=== PATIENT | female | born 1960 | race Caucasian/White ===

== ENCOUNTER 2016-09-05 19:50 | Emergency (ER) | payer OTHER ==
[~2016-09-05] VITALS: Ht 165.1 cm; Wt 65.9 kg
[2016-09-05 20:02] VITALS: BP_DIAS 78
[2016-09-05] MEDS ORDERED: ATOR40TA28 PO (20:09)
[2016-09-05] MEDS ORDERED: CANA100T PO (20:09)
[2016-09-05] MEDS ORDERED: INSU200I4 SQ (20:09)
[2016-09-05] MEDS ORDERED: CILO100T PO (20:09)
[2016-09-05] MEDS ORDERED: METO25 PO (20:09)
[2016-09-05] MEDS ORDERED: CLOP75 PO (20:09)
[2016-09-05] MEDS ORDERED: ASPI-556 PO (20:09)
[2016-09-05] MEDS ORDERED: PREG75 PO (20:09)
[2016-09-05 20:12] LABS: GLUCOSE,POINT OF CARE 155 MG/DL (70-110)
[2016-09-05] MEDS ORDERED: ZOLP5 PO (20:12)
[2016-09-05] MEDS ORDERED: ALPR0.5T8 PO (20:12)
[2016-09-05] MEDS ORDERED: LIDOCAINE HCL/PF 1% 2 ML VIAL IM ONE (21:15)
[2016-09-05] MEDS ORDERED: CefTRIAXone SODIUM 1 GM/VIAL IM ONE (21:15)
[2016-09-05 21:56] VITALS: BP_SYST 110
== END 2016-09-05 21:58 | disposition home or self-care (01) ==
LOC: EMS 19:52
DX: S50.862A Insect bite (nonvenomous) of left forearm, initial encounter (principal); L03.114 Cellulitis of left upper limb; L23.9 Allergic contact dermatitis, unspecified cause; L08.9 Local infection of the skin and subcutaneous tissue, unspecified; E11.9 Type 2 diabetes mellitus without complications; E78.00 Pure hypercholesterolemia, unspecified; I25.10 Atherosclerotic heart disease of native coronary artery without angina pectoris; I25.2 Old myocardial infarction; F17.210 Nicotine dependence, cigarettes, uncomplicated; Z95.1 Presence of aortocoronary bypass graft; Z79.82 Long term (current) use of aspirin; W57.XXXA Bitten or stung by nonvenomous insect and other nonvenomous arthropods, initial encounter; Y93.89 Activity, other specified; Y92.89 Other specified places as the place of occurrence of the external cause; Y99.8 Other external cause status
CPT/HCPCS: 82962; 96372; 99283; J0696; J3490